=== PATIENT | female | born 1980 | race Caucasian/White ===

== ENCOUNTER 2016-09-29 17:00 | Inpatient (IN) | payer OTHER ==
[~2016-09-29] VITALS: Ht 170.2 cm; Wt 57.6 kg
--- NOTE | ~2016-09-29 | PN ---
Unit #: [id number] #: [id number] Patient: TONA MCBRIDE [id number] [facility] [address] [place] [address] [id number] MR#: [id number] NAME: TONA MCBRIDE ROOM: P202 Age: 36 Sex: F Admission Date: 09/30/2016 : 1980 Attending Physician: Tim Graves M.D. Admitting Physician: Tim Graves M.D. Primary Care Physician: Generic Doctor Not In System [facility] PROGRESS NOTES DATE October 01, 2016 DISCUSSION Ms. Mcbride is a 36-year-old white female, who was seen today and chart was reviewed and the case was discussed with the staff. She was seen to be anxious, withdrawn, and rather seclusive to herself. Meanwhile, she has been cooperative with the treatment recommendations and she has been taking the medications and tolerating them fairly well with no reported side effects. MENTAL STATUS EXAMINATION Young white female, who was casually dressed with fair personal hygiene and appears to be in no acute distress or discomfort. She was awake and alert with intact orientation. Her mood was anxious with a congruent affect. Her speech is slow and goal-directed. The patient denies any suicidal or homicidal ideations, and also denies any auditory or visual hallucinations. Her insight and judgment remain slightly impaired. TREATMENT PLAN 1. We will continue her on her current medications and treatment protocol, and will monitor her response to the medications, and make further adjustments as needed. 2. We will continue to followup. Dictated by... Lynda Gamino/aubrey TD: 10/02/2016 08:36 JOB #: [id number] Unit #: [id number] #: [id number] Patient: TONA MCBRIDE [facility] PROGRESS NOTES Page 1 of 1 X Tim Graves MD PROGRESS NOTE
--- NOTE | ~2016-09-29 | PN ---
Unit #: [id number] #: [id number] Patient: TONA MCBRIDE [id number] [facility] [address] [place] [address] [id number] I MR#: [id number] NAME: TONA MCBRIDE ROOM: P202 Age: 36 Sex: F Admission Date: 09/30/2016 : 1980 Attending Physician: Tim Graves M.D. Admitting Physician: Tim Graves M.D. Primary Care Physician: Generic Doctor Not In System [facility] PROGRESS NOTES DATE 10/02/2016 DISCUSSION Ms. Mcbride is a 36-year-old white female with mood disorder and substance abuse who was seen today and chart was reviewed and case was discussed with the staff. She has been anxious, withdrawn, depressed and seclusive to herself. Meanwhile, she has been cooperative with treatment recommendations and has been taking medications and tolerating them fairly well with no reported side effects. MENTAL STATUS EXAMINATION Young white female who was casually dressed with fair personal hygiene and appears to be in no acute distress or discomfort. She was awake and alert on interaction with intact orientation. Her mood was anxious and depressed with congruent affect. Her speech is slow and goal-directed. She denies any suicidal or homicidal ideations. Her insight and judgement remains slightly impaired. TREATMENT PLAN 1. Will continue on current medications and treatment protocol. Will monitor her response to the medications and make further adjustments as needed. 2. Will continue to follow up. Dictated by... Lynda Gamino/savana TD: 10/02/2016 16:50 JOB #: [id number] Unit #: [id number] #: [id number] Patient: TONA MCBRIDE PROGRESS NOTES Page 1 of 1 X Tim Graves MD X PROGRESS NOTE
--- NOTE | ~2016-09-29 | A ---
[facility] Nutrition Therapy DATE: 10/01/16 Patient: TONA MCBRIDE Physician: CHAU Address: [address] [place] [address] Room/Bed: [address], Zip: [place] [address] Admit Date: 09/30/16 Date of : [birth year] Height: 5 7 Weight: [phone] NUTRITIONAL ASSESSMENT: REASON: UNINTENTIONAL WEIGHT LOSS PATIENT ADMITTED FOR SI AND DETOX PMH: COPD, MIGRAINES, POLYSUBSTANCE ABUSE Anthropometrics: HT: 67", WT: 127#, BMI: 19.9, %IBW: 94 Labs: 09/30/16- ALB: 3.4 ALL OTHER NUTRITION LABS WNL Meds: WELLBUTRIN XL, DESYREL Assessment: PATIENT IS A 36 Y/O FEMALE ADMITTED FOR SI AND DRUG DETOX. PATIENT IS CURRENTLY UNEMPLOYED, HOMELESS, SMOKES 2 PPD, AND HAS DAILY COCAINE AND METH USE FOR THE LAST 6 MONTHS. SHE IS ALSO CURRENTLY GOING THROUGH A DIVORCE. UPON ADMIT PATIENT STATED A POOR APPETITE WITH A 20# WEIGHT LOSS X LAST SEVERAL WEEKS, AND SHE HAS NOT BEEN SLEEPING (AVG 2HRS/NIGHT). NURSING REPORTS GOOD PO INTAKES. THERE IS NO WEIGHT HX RECORDED IN [place]. CURRENT PSYCH MEDS MAY CAUSE FLUCTUATIONS IN WEIGHT AND APPETITE. THERE ARE NO SKIN OR GI ISSUES NOTED ATT. PATIENT'S BMI IS WITHIN A HEALTHY RANGE, SHE IS 94% OF HER IBW, AND HER NUTRITIONAL LABS ARE ESSENTIALLY WNL. PATIENT IS ON A REGULAR DIET WITH NO CAFFEINE. THIS RD SUSPECTS WEIGHT AND APPETITE WILL STABILIZE AND POSSIBLY INCREASE FOLLOWING DETOX. Dx: UNINTENTIONAL WEIGHT LOSS R/T CURRENT CONDITION, DRUG USE AEB SELF-REPORTED WEIGHT LOSS AND DECREASED APPETITE, NUTRITIONAL RISK POINT Intervention: REGULAR DIET, MEDS PER MD, DETOX, PSYCH Monitoring, Evaluation and Goals: 1. ADEQUATE PO INTAKES >50% OF MEALS 2. PREVENT, CORRECT MICRO/MACRO NUTRIENT DEFICIENCIES 3. WEIGHT; MAINTAIN CURRENT WEIGHT, PREVENT FURTHER WEIGHT LOSS MONITOR: WEIGHTS, LABS, PO/FLUID INTAKES Recommendations: 1. CONTINUE REGULAR DIET WITH NO CAFFEINE TOLERATED. OFFER SNACKS BETWEEN MEALS. IF PATIENT HAS C/O HUNGER SEND ORDER FOR LARGER PORTIONS AND RD WILL APPROVE. 2. ENCOURAGE ADEQUATE PO AND FLUID INTAKES [facility] Nutrition Therapy DATE: 10/01/16 Patient: TONA MCBRIDE Physician: CHAU Address: [address] [place] [address] Room/Bed: [address], Zip: [place] [address] Admit Date: 09/30/16 Date of : [birth year] Height: 5 7 Weight: [phone] 3. OBTAIN WEIGHTS ROUTINELY (EVERY 3-4 DAYS) RD TO F/U PER PROTOCOL AND PRN R/T PATIENT MILDLY COMPROMISED Respectfully, JET GARY RD, LD [facility] cc: client file
--- NOTE | ~2016-09-29 | PA ---
Unit #: [id number] #: [id number] Patient: TONA MCBRIDE [id number] [facility] [address] [place] [address] [id number] I MR#: [id number] NAME: TONA MCBRIDE ROOM: P202 Age: 36 Sex: F Admission Date: 09/30/2016 : 1980 Date of Assessment: 09/30/2016 Attending Physician: Tim Graves M.D. Admitting Physician: Tim Graves M.D. Primary Care Physician: Generic Doctor Not In System PSYCHIATRIC ASSESSMENT DATE OF SERVICE 09/30/2016. IDENTIFYING DATA Ms. Mcbride is a 36-year-old single white female, who is a resident of [place], [place], and she was transferred to us from [facility] Emergency Room. CHIEF COMPLAINT "I've been using 5 to 6 g of methamphetamine." HISTORY OF PRESENT ILLNESS Ms. Mcbride is a 36-year-old white female, who was admitted to the [facility] Emergency Room, where she presented stating that she recently lost her home, her social support system is going through divorce, and she has used drugs as coping technique, and drug of choice is methamphetamine, and reports that she has been using 5 to 6 g of methamphetamine on a daily basis and has been using this amount for approximately 6 months. The patient reports that she is suicidal and had a plan to slit her throat. On evaluation by me, the patient was seen to be anxious, withdrawn, and seclusive to herself with blunted affect and minimal interaction, feelings of hopelessness and helplessness, and suicidal ideations with intent and plan, and as such, recommendation for inpatient level of care for safety and stabilization was made and the patient was stepped up to the inpatient unit. SUBSTANCE ABUSE HISTORY The patient reports history of cocaine and methamphetamine abuse. Methamphetamine has been her drug of choice and reports that she has been using 5 to 6 g a day by smoking it. PAST PSYCHIATRIC HISTORY The patient has not had any prior inpatient or outpatient psychiatric treatment. Review of the medical records indicated that currently she is not active in any treatment program, is not seeing a psychiatrist, and is not taking any psychotropic medications. PAST MEDICAL HISTORY The patient's medical history is significant for COPD and migraine headaches. ALLERGIES Ibuprofen. Unit #: [id number] #: [id number] Patient: TONA MCBRIDE PERSONAL AND SOCIAL HISTORY This is a 36-year-old white female, who reports that she is single, unemployed, and essentially homeless, and has poor social support system. MENTAL STATUS EXAMINATION Middle-aged white female, who was casually dressed with fair personal hygiene, appears to be in no acute distress or discomfort. The patient was awake and alert on interaction with intact orientation to time, place, and person. Her mood was anxious and depressed with a congruent affect. Speech was slow and restricted in content. She reports having suicidal ideation, but denies any homicidal ideations, and also denies any auditory or visual hallucinations. Her insight and judgment remain significantly impaired. DIAGNOSTIC IMPRESSION Psychiatric: Major depressive disorder, recurrent, moderate, without psychotic features; cocaine dependence, moderate. Medical: Gastric ulcers. Stressors: Moderate psychosocial stressors. TREATMENT PLAN 1. The patient has presented with a history of mood disorder, and has been decompensating and will need inpatient hospitalization for safety and stabilization. We will start her back on home medications. We will also recommend antidepressant therapy. 2. Supportive therapy was provided to the patient. 3. Safe, structured, and nourishing environment will be provided to the patient. ESTIMATED LENGTH OF STAY 4 to 5 days. ABILITY TO HELP SELF Limited. WILLINGESS TO HELP SELF The patient appears to be willing to help self. STRENGTHS 1. Communicative. 2. Cooperative. PROBLEMS 1. Chronic dysphoric symptoms. 2. Poor social support system. DISCHARGE CRITERIA This will be contingent upon the patient's ability to show resolution of her depression and anxiety and her ability to stay safe to herself, particularly after discharge from the hospital. Dictated by... Lynda Gamino/patricia Unit #: [id number] #: [id number] Patient: TONA MCBRIDE TD: 09/30/2016 12:32 JOB #: [id number] PSYCHIATRIC ASSESSMENT Page 1 of 1 X Tim Graves MD PSYCHIATRIC ASSESSMENT
--- NOTE | ~2016-09-29 | DS ---
Unit #: [id number] #: [id number] [facility] [id number] [facility] [address] [place] [address] [id number] I MR#: [id number] NAME: TONA MCBRIDE ROOM: P202 Age: 36 Sex: F Admission Date: 09/30/2016 : 1980 Discharge Date: 10/04/2016 Attending Physician: Tim Graves M.D. Primary Care Physician: Generic Doctor Not In System DISCHARGE SUMMARY IDENTIFYING DATA Ms. Mcbride is a 36-year-old, single, white female, who is a resident of [place], [place], and was transferred to us from [facility] Emergency Room. DISCHARGE DIAGNOSES Psychiatric: Major depressive disorder, recurrent, moderate, without psychotic features; cocaine dependence, moderate. Medical: Gastric ulcers. Stressors: Moderate psychosocial stressors. HISTORY OF PRESENT ILLNESS Please see initial psychiatric evaluation for details. PAST PSYCHIATRIC HISTORY Please see initial psychiatric evaluation for details. PAST MEDICAL HISTORY Please see initial psychiatric evaluation for details. HOSPITAL COURSE The [facility] and was oriented to the hospital environment. Routine p.r.n. medications were initiated, and she was started back on her home medications and medications were adjusted and she was started on Wellbutrin XL 150 mg in the morning and was closely monitored. She was taking the medications regularly and was tolerating them fairly well and was able to show a decent therapeutic response with improvement in depression and anxiety, and was willing to continue treatment on an outpatient basis and as such, it was decided that she will be discharged home and will continue treatment on an outpatient basis. DISCHARGE MEDICATIONS Wellbutrin XL 150 mg in the morning for depression. DISCHARGE CONDITION Stable. PROGNOSIS Fair. Unit #: [id number] #: [id number] Patient: TONA MCBRIDE Dictated by... Tim Graves M.D. IAA/modl TD: 10/04/2016 07:31 JOB #: [id number] DISCHARGE SUMMARY Page 1 of 1 X Tim Graves MD X DISCHARGE SUMMARY
--- NOTE | ~2016-09-29 | HP ---
Unit #: [id number] #: [id number] Patient: TONA MCBRIDE [id number] [place] [address] [id number] I MR#: [id number] NAME: TONA MCBRIDE ROOM: P202 Age: 36 Sex: F Admission Date: 09/30/2016 : 1980 Attending Physician: Tim Graves M.D. Admitting Physician: Tim Graves M.D. Primary Care Physician: Generic Doctor Not In System HISTORY AND PHYSICAL HISTORY OF PRESENT ILLNESS The patient is a 36-year-old female admitted to [address] [place] [address] on 09/30/2016 for methamphetamine abuse and suicidal ideation. PAST MEDICAL HISTORY 1. Polysubstance use. 2. COPD. 3. Migraines. PAST SURGICAL HISTORY Abdominal lesion removal. SOCIAL HISTORY 1. She is unemployed and homeless. 2. She smokes two packs of cigarettes daily. Uses a 1/2 gram of coke per day and yesterday used six grams of methamphetamine. FAMILY MEDICAL HISTORY Noncontributory. ALLERGIES Ibuprofen CURRENT MEDICATIONS The patient is not on any home medications. REVIEW OF SYSTEMS CONSTITUTIONAL: No fever or chills. HEENT: Denies any sore throat, ear pain or runny nose. CARDIOVASCULAR: Denies chest pain, irregular heart rhythm or palpitations. CHEST: Denies shortness of breath or cough. No hemoptysis. GASTROINTESTINAL: Denies nausea, vomiting, diarrhea or chronic constipation. ENDOCRINE: Denies history of increased thirst or urination. No recent significant weight loss or gain. GENITOURINARY: Denies dysuria, frequency, or hematuria. SKIN: Denies any rashes. HEMATOLOGIC: Denies history of increased bleeding or bruising. MUSCULOSKELETAL: Denies any hot, swollen joints. No generalized muscle pain. NEUROLOGIC: Denies problems with vision or speech. No frequent, severe headaches. No numbness, tingling or weakness in any extremities. Denies loss of bladder or bowel control. Unit #: [id number] #: [id number] Patient: TONA MCBRIDE PHYSICAL EXAM GENERAL: She is awake, alert and oriented in no acute distress. VITAL SIGNS: Temperature 98.5, heart rate 104, respiration 18, blood pressure 142/98. HEIGHT: 5'10". WEIGHT: 198 pounds. SKIN: Warm and dry without rash or lesion. HEENT: Normocephalic. TMs not viewed. Oral and nasal passages clear. Conjunctivae clear. PERRLA. EOMs intact. NECK: Supple without lymphadenopathy or thyromegaly. HEART: Regular rate and rhythm without murmur. LUNGS: Clear. ABDOMEN: Soft, nontender. : Not done. EXTREMITIES: No evidence of cyanosis, clubbing or edema. Moves all without focal deficit. NEUROLOGICAL: Grossly within normal limits. Cranial Nerves: II: Visual ross are intact. III, IV AND : Extraocular movements are intact. Pupils are equal, round and reactive to light. V: Facial sensation is grossly normal. VII: Facial movements and expression are normal. VIII: Auditory acuity grossly intact. IX, X: Uvula is midline. Phonation is normal. XI: Patient shrugs shoulders and turns head normally. XII: Tongue protrudes in the midline. Sensory and Motor Function: Sensory and motor sensation is grossly normal. Motor: moves all extremities well. IMPRESSION 1. Psychiatric admission. 2. Poly substance use. 3. COPD. 4. Migraines. RECOMMENDATIONS Psychiatric per psychiatrist. MEDICAL: No contraindication to participate in facility activities. MEDICAL PROGNOSIS Good. MEDICAL CONDITION Stable. Dictated by... Vasiliy Ross/zoey TD: 10/01/2016 01:47 JOB #: [id number] Unit #: [id number] #: [id number] Patient: TONA MCBRIDE HISTORY AND PHYSICAL Page 1 of 1 X SHONDA DIXON APRN HISTORY AND PHYSICAL
--- NOTE | ~2016-09-29 | PN ---
Unit #: [id number] #: [id number] Patient: TONA MCBRIDE [id number] [facility] [address] [place] [address] [id number] MR#: [id number] NAME: TONA MCBRIDE ROOM: P202 Age: 36 Sex: F Admission Date: 09/30/2016 : 1980 Attending Physician: Tim Graves M.D. Admitting Physician: Tim Graves M.D. Primary Care Physician: Generic Doctor Not In System [facility] PROGRESS NOTES DATE 10/03/2016 DISCUSSION Ms. Mcbride is a 36-year-old white female who was seen today and chart was reviewed and case was discussed with the staff. She reports doing somewhat better though still has been seen to be isolative and seclusive with blunted affect and minimal interaction. Meanwhile, she has been compliant with treatment recommendations and has been taking medications and tolerating them fairly well. MENTAL STATUS EXAMINATION Middle-aged white female who was casually dressed with fair personal hygiene, appears to be in no acute distress or discomfort. She was awake and alert on interaction with intact orientation. Her mood was anxious with congruent affect. She denies any suicidal or homicidal ideations. Also, denies any auditory or visual hallucinations. Her insight and judgement remains slightly impaired. TREATMENT PLAN 1. We will continue her on her current medications and treatment protocol. We will monitor her response to the medication and make further adjustments as needed. 2. We will continue to follow up. Dictated by... Lynda Gamino/zoey TD: 10/04/2016 00:13 JOB #: [id number] Unit #: [id number] #: [id number] Patient: TONA MCBRIDE PROGRESS NOTES Page 1 of 1 X Tim Graves MD PROGRESS NOTE
[2016-09-30 11:23] LABS: BASOPHIL% 0.5 % (0-2.5); EOSINOPHIL# 0.2 X10e3 (0-0.7); EOSINOPHIL% 2.2 % (0.0-7.0); HEMATOCRIT 33.4 % (35.0-45.0); HEMOGLOBIN 11.3 gm/dL (12.0-16.0); LYMPHOCYTE# 2.2 X10e3 (1.0-3.5); LYMPHOCYTE% 27.3 % (17.0-45.0); MEAN CELL VOLUME 79.3 FL (83-96); MEAN CORPUSCULAR HEMOGLOBIN 26.9 PG (28-34); MEAN CORPUSCULAR HGB CONC 33.9 g/dL (30-36); MEAN PLATELET VOLUME 9.3 FL (6.5-11.5); MONOCYTE# 0.6 X10e3 (0-1.0); MONOCYTE% 7.8 % (3.0-12.0); NEUTROPHIL# 5.1 X10e3 (1.5-7.1); NEUTROPHIL% 62.2 % (40-75); PLATELET COUNT 216 X10e3 (140-420); RED BLOOD COUNT 4.21 X10e (3.90-5.30); RED CELL DISTRIBUTION WIDTH 18.4 % (11.0-15.5); WHITE BLOOD COUNT 8.2 X10e3 (4.0-10.5)
[2016-09-30 11:25] LABS: DIFF IND NO
[2016-09-30 11:27] LABS: ALBUMIN SERUM 3.4 g/dL (3.5-5.0); BILIRUBIN,TOTAL 0.4 mg/dL (0.2-2.0); BUN/CREATININE RATIO 17.14; CALCIUM SERUM 8.7 mg/dL (8.4-10.2); CREATININE SERUM 0.7 mg/dL (0.6-1.4); GLOM FILT RATE Estimated 110.7 mL/min (>60); POTASSIUM 3.7 mmol/L (3.5-5.1); PROTEIN TOTAL SERUM 5.8 g/dL (6.0-8.3)
[2016-10-02 09:48] LABS: URINE APPEARANCE CLEAR; URINE BILIRUBIN NEG (NEG); URINE BLOOD NEG (NEG); URINE COLOR YELLOW; URINE GLUCOSE NEG (NEG); URINE KETONE NEG (NEG); URINE LEUKOCYTE ESTERASE 2+ (NEG); URINE NITRATE NEG (NEG); URINE PROTEIN NEG (NEG); URINE SPECIFIC GRAVITY 1.019 (1.003-1.035)
[2016-10-02 09:51] LABS: URBCS1 AUWI 0-2 /[HPF] (0-2); URINE BACTERIA AUWI NEG (NEGATIVE); URINE SQUAMOUS EPITHELIAL CELL NONE SEEN /[HPF]
== END 2016-10-04 09:25 | disposition home or self-care (01) | DRG 885 ==
LOC: P2S 09-30 00:48
PROVIDERS: Psychiatry & Neurology Psychiatry
DX: F33.1 Major depressive disorder, recurrent, moderate (principal); F14.20 Cocaine dependence, uncomplicated; J44.9 Chronic obstructive pulmonary disease, unspecified; G43.909 Migraine, unspecified, not intractable, without status migrainosus; F17.210 Nicotine dependence, cigarettes, uncomplicated; Z88.6 Allergy status to analgesic agent
CPT/HCPCS: 80053; 81003; 85025